=== PATIENT | male | born 1980 | race Caucasian/White ===

== ENCOUNTER 2020-05-29 13:03 | Emergency (ER) | payer OTHER, SELFPAY ==
--- NOTE | ~2020-05-29 | XR_ITS ---
EXAMINATION: XR abdomen/kub 1V INDICATION: Right flank pain TECHNIQUE: Supine views of the abdomen were obtained on 2 radiographs. COMPARISON: CT from today FINDINGS: There is a 4 mm calcification of the right pelvis projecting just lateral to the coccyx in the expected location of the right distal ureteral stone identified on the comparison CT. No addition al abnormal calcifications are identified. The bowel gas pattern is normal. The visualized lung bases are clear. IMPRESSION: 1. 4 mm right distal ureteral stone. Reviewed, dictated and finalized at location A.
--- NOTE | ~2020-05-29 | CT_ITS ---
EXAMINATION: CT abdomen pelvis wo con DATE: 05/29/2020 14:14 INDICATION: Right flank pain TECHNIQUE: Computed tomography (CT) of the abdomen and pelvis was performed without intravenous contr ast. The dose-length product (DLP) was 635.13 mGy-cm. Automated exposure control and iterative recons truction technique were employed. COMPARISON: None FINDINGS: The lung bases are clear. The heart size is normal. The liver, spleen, pancreas, gallbladde r, and adrenal glands are normal. The left kidney is unremarkable. There is a 3 mm stone of the right distal ureter which causes mild right hydroureteronephrosis. The right kidney is otherwise normal. N o pathologically enlarged abdominal or pelvic lymph nodes are identified. There is no free intraperit boswell gas or evidence of bowel obstruction. There are umbilical and right inguinal hernias containing fat. IMPRESSION: 1. 3 mm stone of the right distal ureter causing mild right hydroureteronephrosis. Reviewed, dictated and finalized at location A. IMPRESSION: 1. 3 mm stone of the right distal ureter causing mild right hydroureteronephros is.
[2020-05-29 13:16] VITALS: BP 164/95; PULSE 74; RESP 18; TEMP 36.5; O2SAT 100
[2020-05-29 13:43] LABS: Basophils Percent Auto 0.3 % (0.2-1.2); Eosinophils Absolute Auto 0.1 K/mm3 (0-0.3); Eosinophils Percent Auto 0.8 % (0-4.4); Hemoglobin 15.7 g/dL (14.0-18.0); Immature Granulocyte Absolute 0.05 K/mm3 (0.00-0.031); Immature Granulocyte Percent A 0.5 % (0-0.5); Lymphocytes Absolute Auto 1.14 K/mm3 (0.9-3.2); Lymphocytes Percent Auto 12.3 % (18.3-44.2); Mean Corpuscular HGB Conc 34.1 g/dl (32-36); Mean Corpuscular Hemoglobin 30.4 pg (26-34); Mean Corpuscular Volume 89.1 fl (80-100); Mean Platelet Volume 11.9 fl (7.4-10.4); Monocytes Percent Auto 10.6 % (2.6-8.5); Neutrophils Percent Auto 75.5 % (45.5-73.1); Platelet Count Result 197 k/mm3 (150-375); Red Blood Count 5.16 M/mm3 (4.6-6.20); Red Cell Distribution Width 13.1 % (11.5-14.5); White Blood Count 9.3 K/mm3 (4.5-10.0)
[2020-05-29 13:54] LABS: Add Urine Microscopic? YES; Appearance Urine Clear (Clear); Bilirubin Urine Negative (Negative); Blood Urine 1+ (Negative); Color Urine Yellow (Yellow); Glucose Urine UA Negative (Negative); Ketones Urine Negative (Negative); Leukocyte Esterase Ur Negative LEU/UL (Negative); Mucus Urine Few /lpf; Nitrate Urine Negative (Negative); Protein Urine 1+ mg/dL (Negative); Specific Grav Ur 1.027 (1.001-1.035); Squamous Epithelial Cell Urine Rare /hpf (Few); Urobilinogen Urine Negative mg/dL (<2.0); WBC Urine 0-3 /hpf
--- NOTE | 2020-05-29 14:00 | ED.BACK ---
HPI - Back Pain/Injury General Chief Complaint: Urogenital-Male Stated Complaint: rt flank/abd pain. hx kidney stone Time Seen by Provider: 05/29/20 13:26 Source: patient Mode of arrival: ambulatory Limitations: no limitations History of Present Illness HPI Narrative: This patient is a 39 year old male with history of kidney stones who presents for evaluation of right flank pain for a couple days. PAtient states he developed worsening pain yesterday. He has noticed that his pain has moved to his right lower back and intermittently to lower abdomen. He has associated nausea and dysuria. This pain is similar to previous episodes to his kidney stones. He took aleve 4 hours ago. His pain is rated 2/10. now. Related Data Home Medications Medication Instructions Recorded Confirmed aspirin 81 mg tablet,delayed 81 mg PO DAILY 12/04/19 release Allergies Allergy/AdvReac Type Severity Reaction Status Date / Time No Known Allergies Allergy Mild Verified 05/29/20 13:19 Review of Systems Review of Systems: All systems reviewed & are unremarkable except as noted in HPI and below Constitutional: Constitutional: Denies chills and Denies fever(s) Gastrointestinal: Gastrointestinal: Reports abdominal pain, Denies diarrhea, Reports nausea and Denies vomiting Genitourinary: Genitourinary: Denies hematuria, Reports dysuria, Denies penile discharge and Reports urinary frequency Musculoskeletal: Musculoskeletal: Reports back pain PMFSH Past Medical History Medical History Body mass index (BMI) of 40.1-44.9 in adult Essential (primary) hypertension (~2018) 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 Obstructive sleep apnea syndrome in adult (~2007) Panic disorder [episodic paroxysmal anxiety] Surgical History Surgical History (Updated 12/04/19 @ 14:30 by Carolyn Dupree MD) S/P UPPP (uvulopalatopharyngoplasty) (~2008) Social History Social History Years smoked: 10 Smoking status: Former smoker Second hand tobacco smoke exposure: Yes Smoking end date: 11/05/03 Alcohol intake: former Substance use: never 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 HEAD: Normocephalic, atraumatic EYES: PERRLA and EOMI, conjunctiva clear without discharge THROAT:Mucous membranes moist, Oropharynx normal without erythema, exudate, peritonsillar swelling or fluctuance NECK: Supple, without lymphadenopathy or mass RESPIRATORY: No respiratory distress, Airway patent, Respirations non-labored, Clear to auscultation without rales, rhonchi or wheeze HEART: Regular rate and rhythm. No murmur heard. Normal peripheral pulses. ABDOMEN: Soft, right upper abdominal tenderness, nondistended, normal active bowel sounds. No masses. No rebound or guarding, No organomegaly. EXTREMITIES: No edema, normal strength with full range of motion. SKIN: Warm, dry, normal color without rash NEURO: Alert and oriented x3. CN 2-12 grossly intact. No focal deficits. PSYCH: Normal mood and affect. Course Vital Signs Vital signs: Vital Signs Temperature 97.7 F 05/29/20 13:16 Pulse Rate 74 05/29/20 13:16 Respiratory Rate 18 05/29/20 13:16 Blood Pressure 164/95 H 05/29/20 13:16 Pulse Oximetry 100 05/29/20 13:16 Temperature 97.7 F 05/29/20 13:16 Pulse Rate 78 05/29/20 15:58 Respiratory Rate 16 05/29/20 15:58 Blood Pressure 176/90 H 05/29/20 15:58 Pulse Oximetry 98 05/29/20 15:58 MDM - Back Pain/Injury Lab Data Attestation: I reviewed the patient's lab results. Result diagrams: 05/29/20 13:28 05/29/20 13:28 Labs
[2020-05-29 14:03] LABS: Anion Gap 16.1 mmol/L (7-16); Blood Urea Nitrogen 17 mg/dL (9-20); Calcium 9.5 mg/dL (8.4-10.2); Carbon Dioxide 25 mmol/L (22-30); Chloride 99 mmol/L (98-107); Estimated CRCL calculation 112 ml/min; Estimated Glomerular Filt Rate > 60; Glucose 109 mg/dL (75-110); Potassium 4.1 mmol/L (3.4-5.0); Sodium 136 mmol/L (137-145)
[2020-05-29 14:18] LABS: Alanine Aminotransferase 21 U/L (4-50); Albumin Level 4.6 g/dL (3.5-5.1); Alkaline Phosphatase 65 U/L (38-126); Aspartate Amino Transferase 22 U/L (17-59); Lipase 66 U/L (23-300)
[2020-05-29] MEDS: TAMSULOSIN HCL 0.4 MG CAPSULE PO (15:22)
[2020-05-29] MEDS: KETOROLAC 30 MG/ML VIAL (*BKC) IV PUSH (15:22)
[2020-05-29 15:58] VITALS: BP 176/90; PULSE 78; RESP 16; O2SAT 98
== END 2020-05-29 15:59 | disposition home or self-care (01) ==
PROVIDERS: Emergency Provider General Practice; PCP Family Medicine
DX: N13.2 Hydronephrosis with renal and ureteral calculous obstruction (principal); Z79.82 Long term (current) use of aspirin; I10 Essential (primary) hypertension; G47.33 Obstructive sleep apnea (adult) (pediatric); Z87.891 Personal history of nicotine dependence
CPT/HCPCS: 36415; 74018; 74176; 80048; 80076; 81001; 83690; 85025; 96374; 96375; 99284; A9270; J0131; J1885

== ENCOUNTER 2021-06-13 12:34 | Emergency (ER) | payer OTHER, SELFPAY ==
[2021-06-13 12:40] VITALS: BP 153/106; PULSE 67; RESP 16; TEMP 36.5; O2SAT 99
--- NOTE | 2021-06-13 12:41 | ED.GENADULT ---
HPI - General Adult General Chief complaint: Wound/Laceration Stated complaint: lt hand pinkie finger laceration Source: patient Mode of arrival: ambulatory Limitations: no limitations History of Present Illness HPI narrative: 40 y/o male. PMHx MDD, Seasonal allergies, HTN. Presents to [facility] today with acute complaints of LT pinky finger tip laceration. Pt reports to have been cleaning the blades of a new home cooking slicer, when he accidentally slid LT pinky over blade resulting in injury. 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 Bleeding is controlled. No bony tenderness or injury. Non-diabetic. Unknown last Tetanus. Client is w/o additional acute c/o injury upon PE. Related Data Allergies Allergy/AdvReac Type Severity Reaction Status Date / Time No Known Allergies Allergy Mild Verified 06/13/21 13:02 Review of Systems Review of Systems: CONSTITUTIONAL: Denies fever, chills, sweats. EYES: Denies visual changes, redness, discharge. ENT: Denies rhinorrhea, congestion, sore throat, otalgia. CARDIOVASCULAR: Denies chest pain, palpitations, edema. RESPIRATORY: Denies dyspnea, wheezing, cough GASTROINTESTINAL: Denies abdominal pain, nausea, vomiting, diarrhea. GENITOURINARY: Denies dysuria, hematuria, abnormal discharge SKIN: Denies rash or itching. LT pinky finger laceration. MUSCULOSKELETAL: Denies acute back pain, joint pain, or myalgia. NEUROLOGIC: Denies numbness, or focal weakness. PSYCHIATRIC: Denies anxiety or depression. All systems reviewed & are unremarkable except as noted in HPI and below PMFSH Past Medical History Medical History Body mass index (BMI) of 40.1-44.9 in adult Depression with anxiety Environmental allergies Essential (primary) hypertension (~2018) Kidney stone on right side 2016, 05/2020 Obstructive sleep apnea syndrome in adult (~2007) Panic disorder [episodic paroxysmal anxiety] Surgical History Surgical History S/P UPPP (uvulopalatopharyngoplasty) (~2008) Family History Family History Mother Diabetes mellitus Family history of thyroid disease Grandparent Diabetes mellitus, Onset Age: 63 Acute myocardial infarction, Onset Age: 63 Social History Social History Years smoked: 10 Smoking status: Former smoker Second hand tobacco smoke exposure: Yes Smoking end date: 11/05/03 Alcohol intake: former Alcohol use details: Quit drinking 2017 Substance use: never 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 HEAD: normocephalic, atraumatic. EYES: PERRL. Sclera clear/white. EARS: External ears normal, auditory canals clear and without drainage, TMs normal. NOSE: External nose normal. Positive Rhinorrhea, no obstruction, nares patent. THROAT: Mucous membranes moist, posterior pharynx clear. No exudates. NECK: Neck supple, non-tender without lymphadenopathy, masses or thyromegaly. CARDIOVASCULAR: Regular rate and rhythm without murmurs, gallops, or rubs. Normal pulses LUE. RESPIRATORY: Clear to auscultation. Breath sounds equal bilaterally. No wheezes, rales, or rhonchi. GASTROINTESTINAL: Abdomen soft, non-tender, nondistended. Bowel sounds are active. No guarding. SKIN: warm, with LT pinky finger tip laceration, 1 cm, overlying RT finger pad. Bleeding controlled. No identified FB. No nail involvement. NEURO: No focal neurologic deficits. Good sensation and discrimination LUE. EXTREMITIES: Negative. No bony tenderness RUE. Full flexion and extension RT pinky finger all site
[2021-06-13] MEDS: TETANUS,DIPHTHERIA,AC PERTUSSIS ADULT (0.5 ML) BOOSTRIX IM (12:55)
[2021-06-13] MEDS: LIDOCAINE HCL 1% LOCAL INJ 20 ML VIAL INFILTRATE (12:55)
== END 2021-06-13 13:18 | disposition home or self-care (01) ==
PROVIDERS: Emergency Provider Nurse Practitioner Adult Health
DX: S61.217A Laceration without foreign body of left little finger without damage to nail, initial encounter (principal); W26.8XXA Contact with other sharp object(s), not elsewhere classified, initial encounter; Z23 Encounter for immunization; Z87.891 Personal history of nicotine dependence; G47.33 Obstructive sleep apnea (adult) (pediatric); F41.9 Anxiety disorder, unspecified; F32.9 Major depressive disorder, single episode, unspecified
CPT/HCPCS: 12001; 90471; 90715; 99212; G0463